=== PATIENT | male | born 1985 | race Caucasian/White ===

== ENCOUNTER 2017-11-13 14:39 | Emergency (ER) | payer BC, SELFPAY ==
[2017-11-13] MEDS ORDERED: Ketorolac Tromethamine 30 MG/ML VIAL ONE (15:39)
--- NOTE | 2017-11-13 15:56 | RAD ---
RIGHT KNEE 4 VIEWS: HISTORY: A 32-year-old male with a history of right knee pain following an injury. FINDINGS/IMPRESSION: No fracture, dislocation, or other significant acute osseous abnormality. POS: [facility]
== END 2017-11-13 16:18 | disposition home or self-care (01) ==
LOC: ERS 14:39
DX: M25.561 Pain in right knee (principal); F17.290 Nicotine dependence, other tobacco product, uncomplicated; W19.XXXA Unspecified fall, initial encounter; Y93.61 Activity, american tackle football
CPT/HCPCS: 96372; J1885

== ENCOUNTER 2018-09-01 09:21 | Emergency (ER) | payer BC, SELFPAY ==
--- NOTE | 2018-09-01 10:29 | RAD ---
LEFT KNEE 4 VIEWS: HISTORY: Knee pain. FINDINGS: There are arthritic changes of the knee. There is degenerative spur formation of the medial and late ral compartments and minimal changes of the patellofemoral joint space. Postoperative changes relate d to ACL placement are also incidentally seen. IMPRESSION: Arthritic changes of the knee. No signs of fracture. POS: [facility]
--- NOTE | 2018-09-01 10:34 | RAD ---
THREE VIEWS LEFT ANKLE: HISTORY: Ankle pain. FINDINGS: AP, lateral, and oblique views left ankle were obtained. Comparison is made to a previous exam from 02/21/2013. Three views left ankle demonstrate previously noted lateral soft tissue swelling to have resolved. No evidence of acute fractures, subluxations, or acute bony lesions seen. IMPRESSION: Unremarkable 3 views left ankle. POS: [facility]
== END 2018-09-01 10:40 | disposition home or self-care (01) ==
LOC: ERS 09:21
DX: M25.562 Pain in left knee (principal); M25.572 Pain in left ankle and joints of left foot; F17.210 Nicotine dependence, cigarettes, uncomplicated; W19.XXXA Unspecified fall, initial encounter

== ENCOUNTER 2018-11-07 15:07 | Emergency (ER) | payer SELFPAY | END 2018-11-07 15:35 | disposition home or self-care (01) | LOC: ERS 15:07 | DX: M25.562 Pain in left knee (principal); M25.511 Pain in right shoulder; F17.290 Nicotine dependence, other tobacco product, uncomplicated; F17.210 Nicotine dependence, cigarettes, uncomplicated; X50.9XXA Other and unspecified overexertion or strenuous movements or postures, initial encounter | CPT/HCPCS: 99281 ==

== ENCOUNTER 2019-11-03 08:44 | Emergency (ER) | payer BC, SELFPAY | END 2019-11-03 09:50 | disposition home or self-care (01) | LOC: ERS 08:44 | DX: L73.9 Follicular disorder, unspecified (principal); R21 Rash and other nonspecific skin eruption; F17.290 Nicotine dependence, other tobacco product, uncomplicated | CPT/HCPCS: 99282 ==

== ENCOUNTER 2020-10-09 06:56 | Emergency (ER) | payer OTHER, SELFPAY ==
[2020-10-09] MEDS ORDERED: Ketorolac Tromethamine 30 MG/ML VIAL ONE (07:35)
== END 2020-10-09 08:54 | disposition home or self-care (01) ==
LOC: ERS 06:56
DX: M54.5 Low back pain (principal); F17.210 Nicotine dependence, cigarettes, uncomplicated; W01.0XXA Fall on same level from slipping, tripping and stumbling without subsequent striking against object, initial encounter
CPT/HCPCS: 96372; 99283; J1885

== ENCOUNTER 2021-06-11 19:18 | Emergency (ER) | payer SELFPAY ==
[2021-06-11] MEDS ORDERED: Morphine 4 MG/ML VIAL ONE (20:18)
[2021-06-11] MEDS ORDERED: Bacitracin 1 PK ONE (21:00)
[2021-06-11] MEDS ORDERED: Boostrix 0.5 ML (Tdap) VIAL ONE ×3 (21:00→21:02)
== END 2021-06-11 21:26 | disposition home or self-care (01) ==
LOC: ERS 19:18
DX: S51.011A Laceration without foreign body of right elbow, initial encounter (principal); F17.210 Nicotine dependence, cigarettes, uncomplicated; W50.0XXA Accidental hit or strike by another person, initial encounter
CPT/HCPCS: 12002; 90471; 90715; 96372; J2270

== ENCOUNTER 2023-09-01 11:09 | Emergency (ER) | payer SELFPAY | END 2023-09-01 11:43 | disposition home or self-care (01) | LOC: ERS 11:09 | DX: M25.511 Pain in right shoulder (principal); F17.210 Nicotine dependence, cigarettes, uncomplicated; X50.0XXA Overexertion from strenuous movement or load, initial encounter; Y93.72 Activity, wrestling ==